=== PATIENT | female | born 1960 | race Caucasian/White ===

== ENCOUNTER 2021-03-25 07:44 | Inpatient (IN) | payer MEDICARE, OTHER ==
[2021-03-17 16:52] LABS: BASOPHILS % (AUTO) 0.9 % (0-1); EOSINOPHILS # (AUTO) 0.3 X10'3 (0-0.9); EOSINOPHILS % (AUTO) 6.5 % (0-6); LYMPHOCYTES % (AUTO) 41.4 % (21-51); MEAN CORPUSCULAR HEMOGLOBIN 29.6 PG (27.0-31.0); MEAN CORPUSCULAR HGB CONC 33.7 g/dL (33.0-36.5); MEAN CORPUSCULAR VOLUME 87.9 FL (78-98); MONOCYTES # (AUTO) 0.7 X10'3 (0-0.9); MONOCYTES % (AUTO) 13.9 % (2-12); NEUTROPHILS # (AUTO) 1.8 X10'3 (1.8-7.7); NEUTROPHILS % (AUTO) 37.3 % (42-75); PRE OP HEMATOCRIT 36.3 % (35.0-45.0); PRE OP HEMOGLOBIN 12.2 g/dL (12.0-16.0); PRE OP PLATELET COUNT 221 X10'3 (140-440); RED BLOOD COUNT 4.13 X10'6 (4.20-5.60); RED CELL DISTRIBUTION WIDTH 14.5 % (11.5-14.5)
[2021-03-17 17:18] LABS: ALBUMIN 3.7 G/DL (3.4-5.0); ALBUMIN/GLOBULIN RATIO 1.1 (1.1-1.5); ALKALINE PHOSPHATASE 62 IU/L (46-116); BLOOD UREA NITROGEN 23 MG/DL (7-18); BUN/CREATININE RATIO 22.5 (6.6-38.0); CHLORIDE 100 MMOL/L (99-107); CREATININE 1.02 MG/DL (0.40-0.90); PRE OP ALT 30 U/L (30-65); PRE OP ANION GAP 7 (8-16); PRE OP AST 28 U/L (10-37); PRE OP BILIRUB, TOTAL 0.3 MG/DL (0.0-1.0); PRE OP GLUCOSE 89 MG/DL (70-104); PRE OP SODIUM 139 MMOL/L (135-145); TOTAL CARBON DIOXIDE 32.4 MMOL/L (24-32); TOTAL PROTEIN 7.2 G/DL (6.4-8.2); eGFR 55 ML/MIN
[2021-03-25] VITALS (18 sets, daily range): BP systolic 112–137; BP diastolic 16–86
[~2021-03-25] VITALS: Ht 165.1 cm; Wt 65.5 kg
[~2021-03-25 07:44] MED LIST: AMLO-94 PO; CALC-336 PO; CHOL400T57 PO; CITA20TA28 PO; EST1T PO; HYDR-3973 PO; LYR25C PO; MAGN250T11 PO; MELA10TA PO; MORP30TA PO; PRAM2.252 PO; SYN0.088T PO; cefazolin/dext.iso 2gm/100ml IV ONE; famotidine 20mg tablet PO ONE; ringers solution, lacted 1,000 ML IV SCH
[2021-03-25] MEDS ORDERED: BUPIVAcaine 0.5% W/EPI /PF 10ml vial ONE (09:53)
[2021-03-25] MEDS ORDERED: proCHLORperazine 10 MG/2 ml inj IV PRN (10:15)
[2021-03-25] MEDS ORDERED: morphine 4 MG/ML inj SYRINge IV PRN (10:15)
[2021-03-25] MEDS ORDERED: morphine 2 MG/ML inj. syringe IV PRN (10:15)
[2021-03-25] MEDS ORDERED: meperidine/PF 25mg/ml syringe IV PRN ×3 (10:15)
[2021-03-25] MEDS ORDERED: ondansetron/PF 4mg/2ml inj IV PRN ×2 (10:15→15:50)
[2021-03-25] MEDS ORDERED: ringers solution, lacted 1,000 ML IV SCH (10:15)
[2021-03-25] MEDS ORDERED: midazolam 1 mg/ML 2ml injection ONE (10:31)
[2021-03-25] MEDS ORDERED: fentaNYL /PF 50mcg/ml 5ml ampule ONE (10:31)
[2021-03-25] MEDS ORDERED: LIDOcaine 2% (20mg/ml) 5ml vial ONE (10:36)
[2021-03-25] MEDS ORDERED: rocuronium 10mg/ml inj IV ONE (10:36)
[2021-03-25] MEDS ORDERED: propofol inj 20 ML IV ONE (10:36)
[2021-03-25] MEDS ORDERED: sevoflurane 250ml liquid IH ONE (11:35)
[2021-03-25] MEDS ORDERED: ketamine 50mg/5ml syringe ONE (11:57)
[2021-03-25] MEDS ORDERED: ondansetron/PF 4mg/2ml inj ONE (12:15)
[2021-03-25] MEDS ORDERED: neostigmine methylsulfate 1 MG/ML 10ml vial ONE (12:15)
[2021-03-25] MEDS ORDERED: glycopyrrolate 0.2mg/ml inj ONE (12:15)
[2021-03-25] MEDS ORDERED: dexamethasone sod phosphate 4mg/ml inj. ONE (12:15)
[2021-03-25] MEDS ORDERED: acetaminophen 1,000mg/100ml IV 100 ML IV ONE (12:15)
[2021-03-25] MEDS ORDERED: BUPIVAcaine 0.5% W/EPI /PF 30ml vial ONE (12:17)
--- NOTE | 2021-03-25 14:25 | NUR ---
ADMITTED TO PACU FROM OR ACCOMPANIED BY ANESTHESIA. INTIAL PHYSICAL ASSESSMENT DONE AND RECORDED. REPORT RECEIVED FROM ANESTHESIA.
[2021-03-25] MEDS ORDERED: naloxone 0.4 mg/ml inj ONE (14:32)
[2021-03-25] MEDS ORDERED: CADD PCA waste documentation MC PRN ×2 (15:45→16:10)
[2021-03-25] MEDS ORDERED: naloxone 0.4 mg/ml inj IV PRN ×2 (15:45→16:10)
[2021-03-25] MEDS ORDERED: acetaminophen 325mg tablet PO PRN ×2 (15:50)
[2021-03-25] MEDS ORDERED: acetaminophen 650mg rectal suppository RC PRN (15:50)
--- NOTE | 2021-03-25 16:00 | NUR ---
Patient in room ORTHO 4012. I have received report from THOMPSON hanson in recovery and had the opportunity to ask questions and assume patient care.
--- NOTE | 2021-03-25 16:00 | NUR ---
PACU DISCHARGE CRITERIA MET, REPORT GIVEN TO FLOOR. DENIES PAIN OR DISCOMFORT. PT IS STABLE AND ADEQUATELY RECOVERED FROM ANESTHESIA. PT HAS STABLE AIRWAY PATENCY, RESPIRATORY FUNCTION TO INCLUDE RESPIRATORY RATE AND O2 SAT. HEART RATE, BLOOD PRESSURE STABLE AND HYDRATION ADEQUATE. MENTAL STATUS IS APPROPRIATE. PAIN AND NAUSEA CONTROLLED. REFER TO PACU SPREADSHEET FOR VITAL SIGNS.
[2021-03-25] MEDS ORDERED: HYDROmorph./NS 0.2 mg/ml CADD 100 ML IV SCH ×2 (16:10→17:00)
[2021-03-25] MEDS: ringers solution, lacted 1,000 ML IV SCH (16:10)
[2021-03-25] MEDS ORDERED: MORP30TA60 PO (16:29)
--- NOTE | 2021-03-25 18:34 | NUR ---
Problems reprioritized. Patient report given, Pat, RN questions answered & plan of care reviewed with .
[2021-03-25] MEDS: HYDROcodone/acetaminophen 10/325mg tab PO PRN ×2 (19:34→23:08)
[2021-03-25] MEDS ORDERED: morphine ER 30mg tablet PO SCH (20:00)
[2021-03-25] MEDS ORDERED: morphine ER 30mg tablet PO ONE (20:55)
[2021-03-25] MEDS: pregabalin 25mg capsule PO SCH (20:57)
[2021-03-25] MEDS: magnesium hydroxide 30ml (MOM) UD suspension PO SCH (20:57)
[2021-03-25] MEDS ORDERED: Melatonin 3mg tablet PO SCH (21:00)
[2021-03-25] MEDS ORDERED: calcium carbonate oral susp. 1,250 MG/5 ML (500mg/5ml elem. calcium) PO SCH (21:00)
[2021-03-25] MEDS ORDERED: pramipexole 0.25mg tablet PO SCH (21:00)
[2021-03-26 02:00] VITALS: BP 110/57
[2021-03-26] MEDS: ringers solution, lacted 1,000 ML IV SCH ×2 (02:10→12:10)
[2021-03-26] MEDS: ketorolac tromethamine 15mg/ml inj. IV PRN ×2 (02:37→12:15)
[2021-03-26 06:00] VITALS: BP 132/60
[2021-03-26] MEDS: HYDROcodone/acetaminophen 10/325mg tab PO PRN (06:05)
--- NOTE | 2021-03-26 06:40 | NUR ---
Patient in room ORTHO 4012. I have received report from josep MACKAY with arabella MACKAY and had the opportunity to ask questions and assume patient care.
--- NOTE | 2021-03-26 06:44 | NUR ---
Patient in room ORTHO 4012. I have received report from Becky RN and had the opportunity to ask questions and assume patient care.
[2021-03-26 06:57] LABS: BASOPHILS % (AUTO) 0.2 % (0-1); EOSINOPHILS % (AUTO) 0.1 % (0-6); HEMATOCRIT 34.8 % (35.0-45.0); HEMOGLOBIN 11.8 g/dl (12.0-16.0); LYMPHOCYTES # (AUTO) 1.8 X10'3 (1.1-4.8); LYMPHOCYTES % (AUTO) 23.6 % (21-51); MEAN CORPUSCULAR HEMOGLOBIN 29.7 PG (27.0-31.0); MEAN CORPUSCULAR HGB CONC 33.9 g/dL (33.0-36.5); MEAN CORPUSCULAR VOLUME 87.7 FL (78-98); MEAN PLATELET VOLUME 8.1 FL (7.4-10.4); MONOCYTES # (AUTO) 0.8 X10'3 (0-0.9); MONOCYTES % (AUTO) 10.1 % (2-12); PLATELET COUNT 204 X10'3 (140-440); RED BLOOD COUNT 3.97 X10'6 (4.20-5.60); RED CELL DISTRIBUTION WIDTH 14.3 % (11.5-14.5); WHITE BLOOD COUNT 7.5 X10'3 (4.5-11.0)
[2021-03-26] MEDS ORDERED: levoTHYROXINE 75mcg tablet PO SCH (07:00)
[2021-03-26 07:16] LABS: ALBUMIN 3.1 G/DL (3.4-5.0); ANION GAP 7 (8-16); BLOOD UREA NITROGEN 16 MG/DL (7-18); BUN/CREATININE RATIO 15.5 (6.6-38.0); CALCIUM 7.1 MG/DL (8.5-10.1); CHLORIDE 103 MMOL/L (99-107); CREATININE 1.03 MG/DL (0.40-0.90); GLUCOSE 98 MG/DL (70-104); POTASSIUM 3.4 MMOL/L (3.5-5.1); SODIUM 140 MMOL/L (135-145); TOTAL CARBON DIOXIDE 29.7 MMOL/L (24-32); eGFR 54 ML/MIN
[2021-03-26] MEDS ORDERED: amLODIPine 5mg tablet PO SCH (08:00)
[2021-03-26] MEDS ORDERED: magnesium oxide 400mg tablet PO SCH (08:00)
[2021-03-26] MEDS ORDERED: citalopram 20mg tablet PO SCH (08:00)
[2021-03-26] MEDS ORDERED: cholecalciferol (vitamin D3) 400 unit (10mcg) tablet PO SCH ×2 (08:00→09:23)
[2021-03-26] MEDS ORDERED: HYDROcodone/acetaminophen 10/325mg tab PO SCH (08:00)
[2021-03-26] MEDS ORDERED: estradiol 1mg tablet PO SCH (08:00)
[2021-03-26] MEDS: pregabalin 25mg capsule PO SCH ×2 (08:53→12:15)
[2021-03-26] MEDS: magnesium hydroxide 30ml (MOM) UD suspension PO SCH (08:54)
[2021-03-26 10:00] VITALS: BP 96/48
[2021-03-26] MEDS ORDERED: calcium carbonate oral susp. 1,250 MG/5 ML (500mg/5ml elem. calcium) PO SCH (16:00)
== END 2021-03-26 15:45 | disposition home or self-care (01) | DRG 748 ==
LOC: UNDOADMIN 07:44 → PAS IN 07:44 → ORTHO 4S 13:15 → PAS IN 13:15 → ORTHO 4S 15:44 → PACU 15:44 → ORTHO 4S 16:13 → UNDODISIN 03-26 15:45
PROVIDERS: ADMIT Obstetrics & Gynecology; ATTEND Obstetrics & Gynecology
PROC: 0TSD0ZZ Reposition Urethra, Open Approach (ICD-10-PCS; 2021-03-25)
PROC: 0TJB8ZZ Inspection of Bladder, Via Natural or Artificial Opening Endoscopic (ICD-10-PCS; 2021-03-25)
PROC: 0USG0ZZ Reposition Vagina, Open Approach (ICD-10-PCS; principal; 2021-03-25 11:35)
DX: N81.9 Female genital prolapse, unspecified (principal)
CPT/HCPCS: 36415; 80048; 80053; 82948; 84443; 85025; 86885; 86900; 86901; 87081; 93005; A4215; A4355; A4618; A6402; A7000; C1758; C1771; C1781; G0378; J0131; J1100; J1885; J2001; J2175; J2250; J2310; J2405; J2704; J2710; J3010; J3490; J7120; U0003; U0005